=== PATIENT | female | born 1965 | race Caucasian/White ===

== ENCOUNTER 2025-07-19 10:06 | Outpatient (AMB) | payer OTHER, SELFPAY ==
--- OUTSIDE RECORDS SUMMARY | 2024-05-17 14:31 | XMS_ITS | Encounter Summary ---
Author Organization [facility] [place] [address] Care Team Providers Care Assisted Living Assistant Name Role Phone Chandler Ring MD Primary Care Provider [phone] Encounter Details Date Type Department Care Team (Late st Contact Info) Description 05/17/2024 3:31 PM EDT Hospital Encounter TH HISTORIC ENCOUNTERS EASTERN CONVERSION ONLY Whitney Perez MD [address] [place] [id number] Social History Tobacco Use Types Packs/Day Years Used Date Smoking Tobacco: Never Smokeless Tobacco: Never Alcohol Use Standard Drinks/Week Comments Yes 0 (1 standard drink = 0.6 oz pur e alcohol) Interpersonal Safety Answer Date Record ed Physical Abuse Unrecognized value 06/02/2025 Verbal Abuse Unrecognized value 06/02/2025 Comments No Sex and Gender Information Value Date Recorded Sex Assigned at Female 07/04/2024 4:47 PM EST Legal Sex Female 4:48 AM EST Gender Identity Female 07/04/2024 4:47 PM EST Sexual Orientation Straight 07/04/2024 4: 47 PM EST documented as of this encounter Last Filed Vital Signs Vital Sign Reading Time Taken Comments Blood Pressure - - Pulse - - Temperature - - Respiratory Rate - - Oxygen Saturation - - Inhaled Oxygen Concentration - - Weight 61.7 kg (136 lb) 04/14/2024 11:17 AM EDT Height 154.9 cm (5' 1 ) 04/14/2024 11:17 AM EDT Body Mass Index 25.7 04/14/2024 11:17 AM EDT documented in this encounter Procedure Notes * Whitney Perez MD - 05/17/2024 3:30 PM EDT Procedures The patient reports no side effect with the use of Botox. The patient reports improvement in headaches by at least 50 % since last injection. At baselines the patient had 30 days out of 30 days of headaches and after botox there [id number] of headaches per month in average. The patient would like to proceed. BOTULINUM TOXIN INJECTION PROCEDURE NOTE DATE: 05/17/2024 INDICATION(S): Chronic Migraine Complications of the botulinum toxin injection were explained to the patient and patient signed a written consent form. It was explained to the patient that botulinum toxin effects may not be felt for about 2 weeks. Side effects may include injection site pain, injection site swelling, bruising, infection, flu- like symptoms, diplopia, dysphagia, neck weakness. Skin was prepped with alcohol pads. 200 units of Botox (botulinum toxin type A) was dissolved in 4 ml of sterile normal saline solution. Lot Number:see MAR Patient had injection of the following with a 30G needle attached to a 1 ml insulin syringe: MUSCLES L side (sites) R side (sites) Biomass Technician 5 units (1) 5 units (1) Procerus 5 units (central) Frontalis 10 units (2) 10 units (2) Temporalis 20 units (4) 20 units (4) Occipitalis 15 units (3) 15 units (3) Cervical Paraspinal 10 units (2) 10 units (2) Trapezius 15 units (3) 15 units (3) Total injected: 155 units Total Wasted: 45 units Injection sites were watched closely to confirm hemostasis. No complications were observed with today's procedure.The patient tolerated the procedure well. Information hand out was provided to the patient. I asked the patient to call me with any problems. Patient was instructed not to massage or use heat over the injected site for 24 hours. I asked the patient to call me with any issues and to follow up with me for repeat injection in 3 months. documented in this encounter Plan of Treatment Upcoming Encounters Date Type Department Care Team (Late st Contact Info) Description 08/02/2025 11:20 AM EST Procedure visit [facility] [address] [address] Whitney Perez MD [address] [place] [address] 08/08/2025 3:00 PM EST Office Visit [facility] [address] [id number] Whitney Perez MD [address] [place] [address] documented as of this encounter Visit Diagnoses Not on filedocumented in this encounter Care Teams Assisted Living Assistant Relationship Specialty Start Date End Date Chandler Ring MD [address] [facility] [place] PCP - General 11/25/22 documented as of this encounter
[2025-07-19 10:07] VITALS: BMI 31.4
--- NOTE | 2025-07-19 10:07 | A.PHYSOV ---
Vital Signs 07/19/25 10:07 Height 5 ft Weight 161 lb BMI 31.4 Intake Visit Reasons: FUV AFTER INJECTION 05/22/2025 Intake Note: Patient is a 60 year old female here today for a follow up visit after Right C5-6 and C6-C7 Facet Injections (05/22/25). Allergies amoxicillin Allergy (Unknown, Verified 07/19/25 10:08) Unknown azithromycin Allergy (Unknown, Verified 07/19/25 10:08) Unknown Benzoate Analogues Allergy (Unknown, Verified 07/19/25 10:08) Unknown fluconazole Allergy (Unknown, Verified 07/19/25 10:08) Unknown latex Allergy (Unknown, Verified 07/19/25 10:08) Unknown nabumetone Allergy (Unknown, Verified 07/19/25 10:08) Unknown Penicillins Allergy (Unknown, Verified 07/19/25 10:08) Unknown sumatriptan Allergy (Unknown, Verified 07/19/25 10:08) Unknown HPI Comments Details: History of Present Illness The patient is a 60 year old individual presenting for a follow-up visit for persistent neck and right arm pain. The patient reports pain in the right shoulder both with movement and at rest, which is exacerbated by lifting the right arm. A right subacromial shoulder injection on February 23, 2025, provided significant relief for about two months, after which the pain, located in the front and back of the shoulder, returned in April 2025. The patient reports a constant clicking sensation in the right shoulder and has maintained normal range of motion through home exercises. Following right C5-C6 and C6-C7 facet injections on May 22, 2025, the patient's neck pain has resolved, although pain at the base of the neck with right arm lifting was previously rated 7/10. A cervical spine MRI from January 26, 2025 showed only mild degenerative changes and moderate left foraminal narrowing at C3-C4, which were deemed inconsistent with the symptomatic presentation. Right shoulder X-rays were unremarkable. Past medical history is significant for a thalamic infarction in 2021, which resulted in a mild right hemiparesis. The patient has an upcoming ophthalmologic procedure to place stents for clogged tear ducts. Pain Description - Location: The patient reports persistent pain in the right shoulder, both anteriorly and posteriorly. - Quality: The pain is described as severe enough that it kills and is associated with a constant clicking sound. - Onset/Timing: The shoulder pain is constant and described as it never doesn't hurt. - Exacerbating Factors: Pain is worse with lifting the right arm and when lying down flat. - Relieving Factors: A subacromial injection in the right shoulder provided temporary relief for two weeks. - Status: Neck pain has resolved following recent cervical facet injections. Results - Cervical Spine MRI (January 26, 2025): Revealed mild degenerative changes and moderate left foraminal narrowing at C3-C4, inconsistent with symptoms. - Right Shoulder X-ray (Recent): Unremarkable. 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 - Musculoskeletal: Reports persistent right shoulder pain, both anteriorly and posteriorly, with an associated clicking sound. - Reports neck pain is currently resolved. - Genitourinary: Denies any change in urinary habits. - Eyes: Reports clogged tear ducts, which will be treated with stenting in an upcoming surgery. Physical Exam Exam Exam: Physical Exam - Musculoskeletal: Examination of the right shoulder revealed tenderness to palpation. - Strength testing against resistance showed adequate strength, negative drop-arm test. Neurological examination of upper extremities was nonfocal Examination of the right shoulder reveals positive Caban and Neer signs, negative shoulder apprehension test. Cervical range of motion was restricted and side bending. Spurling maneuver was negative. Lhermitte's sign was negative. Patient demonstrated no upper motor neuron signs. Vital Signs: BMI result Body Mass Index 31.4 Assessment & Plan Assessment & Plan (1) Rotator cuff impingement syndrome of right shoulder: Code(s): M75.41 - Impingement syndrome of right shoulder Category: Medical (2) Neck pain: Code(s): M54.2 - Cervicalgia Category: Medical (3) Cervicobrachial syndrome: Code(s): M53.1 - Cervicobrachial syndrome Category: Medical (4) Spondylosis of cervical region without myelopathy or radiculopathy: Code(s): M47.812 - Spondylosis without myelopathy or radiculopathy, cervical region Category: Medical Plan Pain Management - Affect: Not discussed. - Analgesia: Recent C5-C6 and C6-C7 facet injections have resolved the patient's neck pain. - A right shoulder subacromial injection in February provided temporary relief for two months, but the pain has since returned and is now constant. - Activities of Daily Living: The patient has regained normal range of motion in the right shoulder and actively performs stretches and exercises, but continues to have persistent pain, despite ongoing physician guided home exercises. Plan Patient was informed and verbally consented to the use of an ambient scribe for clinic note documentation during this visit. 1. Right Shoulder Pain The patient presents with persistent right shoulder pain despite a previous subacromial injection which provided only temporary relief. Given the unremarkable X-ray and constant nature of the pain with clicking, an MRI of the right shoulder is being ordered to evaluate for underlying pathology such as a rotator cuff issue or bone spur. This imaging is preferred before considering another injection to avoid obscuring the results. The patient will be contacted to schedule the MRI at [facility] once insurance authorization is obtained. A follow-up appointment will be scheduled after the s to review the MRI results, at which point further treatment, such as a repeat injection or a referral to an orthopedic surgeon, will be determined. 2. Cervicalgia The patient's neck pain has resolved following recent C5-C6 and C6-C7 facet injections. No further intervention is planned for this issue at this time. Discussion Notes I discussed the patient's clinical presentation, noting the resolution of neck pain after the recent cervical facet injections and the persistence of right shoulder pain. I explained that because the previous shoulder injection offered only temporary relief and X-rays were normal, further investigation is needed. I recommended an MRI of the right shoulder to evaluate for underlying pathology, such as a rotator cuff tear or a bone spur, explaining that a complete tear is unlikely given the patient's preserved strength. I informed the patient that it would be best to obtain the MRI before considering another injection, as the fluid from an injection could obscure the imaging results. The patient agreed to the plan. I explained that the MRI requires insurance pre-authorization and the patient will be contacted for scheduling at [facility]. We agreed to a follow-up visit after the holidays to review the MRI results, at which point we will decide on the next steps, which may include another injection or a surgical referral. I advised the patient to schedule the MRI at a time that is convenient and accommodates the patient's upcoming eye surgery. Patient Instructions - We will order an MRI of your right shoulder to get a better look at what is causing your pain. - Our office will request approval from your insurance company, which can take about a week. - Once the MRI is approved, the imaging center will call you to schedule the appointment. - Please schedule the MRI at a time that is convenient for you, especially considering your upcoming eye surgery. - Continue to gently move and stretch your shoulder as you have been doing. - Please schedule a follow-up appointment with our office for after the hols to review the MRI results and discuss the next steps in your treatment. Orders: Orders MR shoulder RT wo con Today M75.41 - Impingement syndrome of right shoulder Coding Level of Care Code Est Pt Level 4 (46417) Complex visit Add On G2211 Diagnoses Rotator cuff impingement syndrome of right shoulder M75.41 Neck pain M54.2 Cervicobrachial syndrome M53.1 Spondylosis of cervical region without myelopathy or radiculopathy M47.812
--- OUTSIDE RECORDS SUMMARY | 2025-07-19 11:28 | XMS_ITS ---
Author Name [facility] History of Medication Use Medication Directions Dispensed Refills Start Date End Date Stat us pregabalin (Lyrica) 25 MG capsule Take 1 capsule (25 mg total) by mouth every night at bedtime for 7 days, THEN 2 capsules (50 mg total) every night at bedtime for 40 days. 05/17/2024 07/04/2024 active gabapentin (NEURONTIN) 800 MG tablet 1 po hs 04/11/2024 active botulinum toxin type A (BOTOX) injection SOLR 200 Units 02/17/2024 05/17/2024 completed DULoxetine (CYMBALTA) DR capsule 30 mg TAKE 1 CAPSULE BY MOUTH EVERY DAY FOR 2 WEEKS THEN TAKE 2 CAPSULES BY MOUTH EVERY DAY 12/30/2023 05/17/2024 aborted galcanezumab-gnlm (Emgality) 120 MG/ML injection Inject 1 mL (120 mg total) under the skin every 28 days. Begin 1 month after initial loading dose of 240 mg. 12/04/2023 active gabapentin (NEURONTIN) 600 MG tablet Take 1 tablet (600 mg total) by mouth 2 (two) times a day. 07/01/2023 active desonide (DESOWEN) 0.05 % cream 11/24/2022 active fluocinonide (LIDEX) 0.05 % cream 11/24/2022 active diazePAM (VALIUM) tablet 5 mg I po 1 hour prior to MRI. May take an additional 1/2 tab at time of MRI if needed. 06/16/2022 active Orhntosofh-NIDD-Aaa feine 50-300-40 MG CAPS Take 1 capsule by mouth every 4 (four) hours as needed. 05/22/2022 active topiramate (TOPAMAX) 50 MG tablet Take 2 tablets (100 mg total) by mouth 2 (two) times a day. 05/12/2022 active buPROPion (WELLBUTRIN XL) 300 MG 24 hr tablet TAKE 1 TABLET BY MOUTH EVERY 24 HOURS 04/27/2022 active Aspirin Low Dose 81 MG EC tablet Take 1 tablet (81 mg total) by mouth daily. 04/08/2022 active atorvastatin (LIPITOR) tablet 80 mg Take 1 tablet (80 mg total) by mouth every night at bedtime. 03/28/2022 02/17/2024 active Botox 200 units SOLR injection 03/20/2022 active naltrexone (DEPADE) 50 MG tablet Take by mouth. 05/22/2021 active ondansetron (ZOFRAN) 4 MG tablet Zofran Take 1 tablet (oral) 3 times per day PRN - Nausea for 2 days Oral dissolving tabs please. [id number] tablet 3 times per day oral 2 days suspended 4 mg 08/27/2019 active Allergies Allergen Reaction Severity Comment Documented Date Source Statu s FLUCONAZOLE 07/08/2022 [facility] active BENZONATATE 05/28/2022 [facility] active AZITHROMYCIN [facility] AMOXICILLIN [facility] LATEX [facility] PENICILLINS [facility] SUMATRIPTAN [facility] Problems Problem Status Onset Date Problem Type Date of Resolution Source Chronic migraine w/o aura w/o status migrainosus, not intractable active EncounterDiagnosisAct [facility] MG Care Team Organization Name Specialty Phone Email Start Date End Da te [facility] MARIE FAGAN Primary Care 07/29/2023 04/04/2024
--- OUTSIDE RECORDS SUMMARY | 2025-07-19 11:28 | XMS_ITS | Clinical Summary ---
Author Organization [facility] Address [address] [place] [address] Care Team Providers Care It Quality Analyst Name Role Phone Chandler Ring MD Primary Care Provider [phone] Allergies Active Allergy Reactions Criticality Noted Date Comments Amoxicillin 05/28/2022 Azithromycin 07/08/2022 Fluconazole 07/08/2022 Sumatriptan 05/28/2022 Latex 05/28/2022 Penicillins 05/28/2022 Benzonatate 05/28/2022 Medications Medication Sig Dispensed Refills Start Date End Date Status Aspirin Low Dose 81 MG EC tablet Take 1 tablet (81 mg total) by mouth daily. 0 04/08/2022 Active buPROPion (WELLBUTRIN XL) 300 MG 24 hr tablet TAKE 1 TABLET BY MOUTH EVERY 24 HOURS 0 04/27/2022 Active Zxqpkrhvzy-TLKR-Evq feine 50-300-40 MG CAPS Take 1 capsule by mouth every 4 (four) hours as needed. 0 05/22/2022 Active naltrexone (DEPADE) 50 MG tablet Take by mouth. 0 05/22/2021 Active Botox 200 units SOLR injection 0 03/20/2022 Active ondansetron (ZOFRAN) 4 MG tablet Zofran Take 1 tablet (oral) 3 times per day PRN - Nausea for 2 days Oral dissolving tabs please. [id number] tablet 3 times per day oral 2 days suspended 4 mg 0 08/27/2019 Active topiramate (TOPAMAX) 50 MG tablet Take 2 tablets (100 mg total) by mouth 2 (two) times a day. 0 05/12/2022 Active diazePAM (VALIUM) tablet 5 mg I po 1 hour prior to MRI. May take an additional 1/2 tab at time of MRI if needed. 10 tablet 0 06/16/2022 Active fluocinonide (LIDEX) 0.05 % cream 0 11/24/2022 Active desonide (DESOWEN) 0.05 % cream 0 11/24/2022 Active gabapentin (NEURONTIN) 600 MG tablet Take 1 tablet (600 mg total) by mouth 2 (two) times a day. 180 each 3 07/01/2023 Active galcanezumab-gnlm (Emgality) 120 MG/ML injection Inject 1 mL (120 mg total) under the skin every 28 days. Begin 1 month after initial loading dose of 240 mg. 1 mL 5 03/09/2024 Active gabapentin (NEURONTIN) 800 MG tablet 1 po hs 30 tablet 5 04/11/2024 Active atorvastatin (LIPITOR) tablet 80 mg TAKE 1 TABLET (80 MG TOTAL) BY MOUTH EVERY NIGHT AT BEDTIME. 90 tablet 1 05/23/2024 Active Active Problems No known active problems Family History Medical History Relation Name Comments Multiple sclerosis Brother Parkinsonism Father Colon cancer Mother Relation Name Status Comments Brother Father Mother Alive Social History Tobacco Use Types Packs/Day Years Used Date Smoking Tobacco: Never Smokeless Tobacco: Never Tobacco Cessation:Counseling Given: Not Answered Alcohol Use Standard Drinks/Week Comments Yes 0 (1 standard drink = 0.6 oz pur e alcohol) Social Sex and Gender Information Value Date Recorded Sex Assigned at Female 04/17/2022 4:10 PM EDT Gender Identity Not on file Sexual Orientation Not on file Job Start Date Occupation Industry Not on file Not on file Not on file Last Filed Vital Signs Vital Sign Reading Time Taken Comments Blood Pressure 121/84 04/14/2024 11:17 AM EDT Pulse 88 04/14/2024 11:17 AM EDT Temperature 35.9 C (96.7 F) 04/14/2024 11:17 AM EDT Respiratory Rate 16 03/31/2023 11:32 AM EDT Oxygen Saturation 94% 04/14/2024 11:17 AM EDT Inhaled Oxygen Concentration - - Weight 61.7 kg (136 lb) 04/14/2024 11:17 AM EDT Height 154.9 cm (5' 1 ) 04/14/2024 11:17 AM EDT Body Mass Index 25.7 04/14/2024 11:17 AM EDT Plan of Treatment Health Maintenance Due Date Last Done Comments Hepatitis C Screening 1965 Depression Screening 1977 BMI Counseling 1983 Preventative Health Evaluation 1983 Cervical Cancer Screening (Pap Smear) 1986 Hepatitis B Vaccines (2 of 3 - 19+ 3-dose series) 07/04/2008 06/06/2008 Colon Cancer Screening (Colonoscopy) 2010 Breast Cancer Screening (Mammogram) 2015 COVID-19 Vaccine (3 - season) 2025 10/16/2020, 09/25/2020 Influenza Vaccine (#1) 2025 , 06/05/2022, 05/28/2021, Additional history exists DTap / Tdap / Td (2 - Td or Tdap) 07/17/2027 07/17/2017, 12/31/2001 RSV Adult > 60+ Yrs or (1 - 1-dose 75+ series) 01/27/2040 Pneumococcal Vaccine Aged Out 03/11/2016 No long er eligible based on patient's age to complete this topic Shingrix-Zoster Vaccine Completed 04/14/2018, 11/21 RSV Ped < 20 months Aged Out No longe r eligible based on patient's age to complete this topic Care Teams It Quality Analyst Relationship Specialty Start Date End Date Chandler Ring MD [address] [facility] [address] [place], [place] [id number] PCP - General Internal Medicine 11/25/22
--- OUTSIDE RECORDS SUMMARY | 2025-07-19 11:28 | XMS_ITS | Clinical Summary ---
Author Organization 175 [facility] Address [address] [place] [address] Phone Care Team Providers Care Language Teacher Name Role Phone Chandler Ring MD Primary Care Provider [phone] Allergies Active Allergy Reactions Criticality Noted Date Comments Amoxicillin 05/28/2022 Azithromycin 07/08/2022 Benzonatate 05/28/2022 Fluconazole 07/08/2022 Latex Anaphylaxis High 05/28/2022 Nabumetone 07/01/2024 Other Reaction(s): rash swelling pt takes ibuprofen at home Penicillins 05/28/2022 Sumatriptan 05/28/2022 Medications aspirin 81 mg EC tablet Take 1 tablet (81 mg total) by mouth 1 (one) time each day. 2 Active buPROPion XL (WELLBUTRIN XL) 300 mg 24 hr tablet Take 1 tablet (300 mg total) by mouth 1 (one) time each day at the same time. 2 Active butalbital-rob taminophen-caf feine 50-300-40 mg capsule Take 1 capsule by mouth Every 4 hours as needed. 2 Active desonide (DESOWEN) 0.05 % cream 3 Active diazePAM (VALIUM) 5 mg tablet I po 1 hour prior to MRI. May take an additional 1/2 tab at time of MRI if needed. 2 Active DULoxetine (CYMBALTA) [address] capsule TAKE 1 CAPSULE BY MOUTH EVERY DAY FOR 2 WEEKS THEN TAKE 2 CAPSULES BY MOUTH EVERY DAY 4 Active fluocinonide (LIDEX) 0.05 % cream 3 Active naltrexone (DEPADE) 50 mg tablet Take by mouth. 1 Active onabotulinumto xinA (Botox) 200 unit injection 2 Active ondansetron (ZOFRAN) 4 mg tablet Zofran Take 1 tablet (oral) 3 times per day PRN - Nausea for 2 days Oral dissolving tabs please. [id number] tablet 3 times per day oral 2 days suspended 4 mg 0 Active topiramate (TOPAMAX) 50 mg tablet Take 2 tablets (100 mg total) by mouth 2 (two) times a day. 2 Active ketoconazole (NIZORAL) 2 % cream every 12 hours. 4 Active estradioL (Estrace) 0.01 % (0.1 mg/gram) vaginal cream See Instructions, 1 Gm Vaginally 2 tmes per week, # 42 Gm, 3 Refills, Maintenance, 02/11/24 3:17:00 PM EDT, [facility]/pharmacy #[id number], Partial fill upon patient request if the prescription is for a schedule II opioid drug., 165, cm, 11/23/23 9:54:00 EDT, Height, 61.8, kg, 11/18/23 0:13:00 EDT, Dry Weight 3 Active docusate sodium (Colace) 100 mg capsule Take 1 capsule (100 mg total) by mouth 2 (two) times a day. 4 Active cetirizine (ZyrTEC) 10 mg tablet Take 1 tablet (10 mg total) by mouth. 4 Active buPROPion XL (WELLBUTRIN XL) 150 mg 24 hr tablet Take 1 tablet (150 mg total) by mouth 1 (one) time each day. Do not crush, chew, or split. Active galcanezumab-g nlm (Emgality Pen) 120 mg/mL injection pen Inject 1 mL (120 mg total) under the skin every 28 (twenty-eight) days. 1 Pen 3 5 Active gabapentin (NEURONTIN) 800 mg tablet TAKE 1 TABLET BY MOUTH 2 TIMES A DAY. 60 tablet 2 5 Active Miebo, PF, 100 % drops 5 Active atorvastatin (LIPITOR) 80 mg tablet TAKE 1 TABLET BY MOUTH EVERYDAY AT BEDTIME 90 tablet 1 5 Active omeprazole (PriLOSEC) [address] capsule Take 1 capsule (20 mg total) by mouth 1 (one) time each day. Do not crush or chew. 90 each 5 026 Active famotidine (Pepcid) 20 mg tablet Take 1 tablet (20 mg total) by mouth at bedtime. 90 each 5 026 Active linaCLOtide (LINZESS) 72 mcg capsule Take 1 capsule (72 mcg total) by mouth 1 (one) time each day. 30 each 1 5 025 Active pregabalin (LYRICA) 50 mg capsuleIndicat ions:Multiple sclerosis 1 p.o. in a.m. and 2 p.o. at bedtime 90 each 5 5 Active pregabalin (LYRICA) 50 mg capsuleIndicat ions:Multiple sclerosis 1 p.o. in a.m. and 2 p.o. at bedtime 90 each 5 5 025 Discontin ued(Reord er) Active Problems Problem Noted Date Diagnosed Date JACK (headache) 06/02/2025 CVA (cerebral vascular accident) (CMS/HCC V24, C MS/HCC V28) 06/02/2025 Encounters Date Type Department Care Team Description 06/05/2025 Results Follow-Up Gastroenterology - [place] 175 [facility] 175 [facility] [address] [place] [address] Judie Vance DO 06/02/2025 9:59 AM EDT Anesthesia Event [facility] [address] [place] [address] Clarissa Woods MD 06/02/2025 8:36 AM EDT - 06/02/2025 11:59 PM EDT Hospital Encounter [facility] [address] [place] [phone] Judie Vance DO Steele, Matthew G, CRNA Kriz, Petra, MD Chronic vomiting; Hiatal hernia Discharge Disposition: Home or Self Care 06/01/2025 9:10 AM EDT Office Visit Gastroenterology - [place] [address] [place] [address] Judie Vance DO Gastroesophageal reflux disease with esophagitis without hemorrhage (Primary Dx) 05/03/2025 2:20 PM EDT Procedure visit [facility] [place] [address] [place] [address] Whitney Perez MD Chronic migraine without aura without status migrainosus, not intractable (Primary Dx) from Last 3 Months Immunizations Immunization Administration Dates Next Due Pfizer SARS-CoV-2 COVID-19, mRNA, LNP-S, preservative free 10/16/2020,09/25/2020 Surgical History Surgery Date Site/Laterality Comments HYSTERECTOMY PROCEDURE:HYSTERECTOMY APPENDECTOMY PROCEDURE:APPENDECTOMY GALLBLADDER SURGERY PROCEDURE:GALLBLADDER SURGERY CYST REMOVAL PROCEDURE:CYST REMOVAL BLADDER SURGERY PROCEDURE:BLADDER SURGERY BLADDER SURGERY 06/24/2023 Bilateral PROCEDURE:BLADDER SURGERY OOPHORECTOMY PROCEDURE:OOPHORECTOMY KNEE SURGERY Left Medical History Medical History Date Comments Migraines DX:Migraines Postural orthostatic tachyca rdia syndrome (POTS) DX:Postural orthostatic tach ycardia syndrome (POTS) Stroke (CMS/HCC V24, CMS/HCC V28) DX:Stroke (HCC) R HAND WEAKNESS Fibromyalgia, primary DX:Fibromy algia, primary Lyme disease DX:Lyme disease Vertigo DX:Vertigo Diverticulosis Hyperlipidemia Vertigo Family History Medical History Relation Name Comments Multiple sclerosis Brother Parkinsonism Father Colon cancer Mother Colon cancer Mother's Sister Relation Name Status Comments Brother Father Mother Alive Mother's Sister Social History Tobacco Use Types Packs/Day Years [...] Orientation Straight 07/04/2024 4: 47 PM EST Obstetrics History Last Filed Vital Signs Vital Sign Reading Time Taken Comments Blood Pressure 134/77 06/02/2025 10:43 AM EDT Pulse 73 06/02/2025 10:43 AM EDT Temperature 36.3 C (97.3 F) 06/02/2025 8:56 AM EDT Respiratory Rate 15 06/02/2025 10:43 AM EDT Oxygen Saturation 100% 06/02/2025 10:43 AM EDT Inhaled Oxygen Concentration - - Weight 72.6 kg (160 lb) 06/01/2025 9:14 AM EDT Height 152.4 cm (5') 06/01/2025 9:14 AM EDT Body Mass Index 31.25 06/01/2025 9:14 AM EDT Plan of Treatment Upcoming Encounters Date Type Department Care Team (Late st Contact Info) Description 08/02/2025 11:20 AM EST Procedure visit [address] [phone] Whitney Perez MD [address] [place] [phone] 08/08/2025 3:00 PM EST Office Visit [address] [phone] Whitney Perez MD [address] [place] [phone] Health Maintenance Due Date Last Done Comments Breast Cancer Screening 1965 Cervical Cancer Screening: Pap Smear 1986 Hepatitis B Vaccines (2 of 3 - 19+ 3-dose series) 07/04/2008 06/06/2008 HIV Screening 07/26/2022 Hepatitis C Screening 07/26/2022 Medicare Annual Wellness Visit 07/26/2022 Social Influencers of Health Screening 07/26/2022 Depression Screening 08/17/2024 COVID-19 Vaccine ( season) 2025 10/16/2020, 09/25/2020 DTaP,Tdap,and Td Vaccines (3 - Td or Tdap) 07/17/2027 07/17/2017, 12/31/2001 Colorectal Cancer Screening: Colonoscopy 07/05/2029 07/05/2024 RSV Immunization Adult Patients (1 - 1-dose 75+ series) 01/27/2040 Zoster Vaccines Completed 04/14/2018, 11/21/2017 Pneumococcal Vaccine: 50+ Years Completed 06/25/2024, 03/11/2016 Influenza Vaccine Completed 05/04/2025, , 05/26/2023, Additional history exists HIB Vaccines Aged Out No longer eligi ble based on patient's age to complete this topic HPV Vaccines Aged Out No longer eligi ble based on patient's age to complete this topic Hepatitis A Vaccines Aged Out No long er eligible based on patient's age to complete this topic IPV Vaccines Aged Out No longer eligi ble based on patient's age to complete this topic MMR Vaccines Aged Out No longer eligi ble based on patient's age to complete this topic Meningococcal ACWY Vaccine Aged Out N o longer eligible based on patient's age to complete this topic Meningococcal B Vaccine Aged Out No l onger eligible based on patient's age to complete this topic RSV Immunization Patients Under 20 months Aged Out No longer eligible based on patient's age to complete this topic Varicella Vaccines Aged Out No longer eligible based on patient's age to complete this topic Goals Goal Patient Goal Type Associated Problems Recent Progress Patient-Stated? Author Autogenerat ed Goal Care Plan Autogenerated Problem No Janice Camarena [employer] Devices Implanted Type Area Match Marker Device Identifier Shelf Expiration Date Model / Serial / Lot Cardiac Loop Recorder Cardiac Loop Recorder Left: Breast Procedures Procedure Name Priority Date/Time Associated Diagnosis Comments EGD Routine 06/02/2025 10:22 AM EDT Chronic vomiting Hiatal hernia TISSUE EXAM Routine 06/02/2025 10:18 AM EDT Chronic vomiting Hiatal hernia COLONOSCOPY Routine 07/05/2024 3:38 PM EST History of colon polyps from Last 3 Months or Most Recently Relevant to Health Maintenance Results * EGD Anesthesia - MAC; [facility] ENDOSCOPY (06/02/2025 10:22 AM EDT) Anatomical Region Laterality Modality Endoscopy 06/02/2025 10:0 0 AM EDT Impressions 06/02/2025 10:22 AM EDT - Normal examined duodenum. - Normal esophagus. - Bilious gastric fluid. - Erythematous mucosa in the stomach. Biopsied. Recommendation: - Discharge patient to home. - Resume previous diet. - Continue present medications. - Await pathology results. Narrative 06/02/2025 10:22 AM EDT [facility] GI Patient Name: Shirin Chris Procedure Date: 06/02/2025 10:00 AM Date of : 1965 Age: 60 Gender: Female Note Status: Finalized Attending MD: Judie Vance DO, [id number] Procedure Date No Time: 06/02/2025 Procedure: Upper GI endoscopy Indications: Heartburn Providers: Judie Vance DO Referring MD: Judie Vance DO Medicines: Monitored Anesthesia Care Complications: No immediate complications. Estimated blood loss: Minimal. Estimated Blood Loss: Estimated blood loss was minimal. Procedure: Pre-Anesthesia Assessment: - - Prior to the procedure, a History and Physical was performed, and patient medications and allergies were reviewed. The patient is competent. The risks and benefits of the procedure and the sedation options and risks were discussed with the patient. All questions were answered and informed consent was obtained. Patient identification and proposed procedure were verified by the physician, the nurse, the anesthesiologist, the manager recruitment and the bioprocessing manufacturing technician in the pre-procedure area in the endoscopy suite. Mental Status Examination: alert and oriented. Airway Examination: normal oropharyngeal airway and neck mobility. Respiratory Examination: clear to auscultation. CV Examination: normal. Prophylactic Antibiotics: The patient does not require prophylactic antibiotics. Prior Anticoagulants: The patient has taken no anticoagulant or antiplatelet agents. ASA Grade Assessment: II - A patient with mild systemic disease. After reviewing the risks and benefits, the patient was deemed in satisfactory condition to undergo the procedure. The anesthesia plan was to use monitored anesthesia care (MAC). Immediately prior to administration of medications, the patient was re-assessed for adequacy to receive sedatives. The heart rate, respiratory rate, oxygen saturations, blood pressure, adequacy of pulmonary ventilation, and response to care were monitored throughout the procedure. The physical status of the patient was re-assessed after the procedure. After obtaining informed consent, the endoscope was passed under direct vision. Throughout the procedure, the patient's blood pressure, pulse, and oxygen saturations were monitored continuously. The Olympus Gastroscope was introduced through the mouth, and advanced to the third part of duodenum. Findings: The examined duodenum was normal. The esophagus was normal. Bilious fluid was found in the stomach. Diffuse moderately erythematous mucosa without bleeding was found in the stomach. Biopsies were taken with a cold forceps for histology. Estimated blood loss was minimal. Procedure Code(s): --- Professional --- 46882, Esophagogastroduodenoscopy, flexible, transoral; with biopsy, single or multiple Diagnosis Code(s): --- Professional --- K31.89, Other diseases of stomach and duodenum R12, Heartburn CPT copyright 2020 [employer]. All rights reserved. The codes documented in this report are preliminary and upon hand trucker review may be revised to meet current compliance requirements. JUDIE Vance DO 06/02/2025 10:21:55 AM This report has been signed electronically.Judie Vance DO Number of Addenda: 0 Note Initiated On: 06/02/2025 10:00 AM Scope In: Scope Out: Endoscopy Department at [facility] - [address] [place] [phone] Procedure Note Judie Vance DO - 06/02/2025 [facility] GI Patient Name: Shirin Chris Procedure Date: 06/02/2025 10:00 AM Date of : 1965 Age: 60 Gender: Female Note Status: Finalized Attending MD: Judie Vance DO, [id number] Procedure Date No Time: 06/02/2025 Procedure: Upper GI endoscopy Indications: Heartburn Providers: Judie Vance DO Referring MD: Judie Vance DO Medicines: Monitored Anesthesia Care Complications: No immediate complications. Estimated blood loss: Minimal. Estimated Blood Loss: Estimated blood loss was minimal. Procedure: Pre-Anesthesia Assessment: - - Prior to the procedure, a History and Physicalwas performed, and patient medications and allergieswere reviewed. The patient is competent. The risks and benefits of the procedure and the sedation optionsand risks were discussed with the patient. Allquestions were answered and informed consent was obtained. Patient identification and proposed procedure were verified by the physician, the nurse, the anesthesiologist, the manager recruitment and thetechnician in the pre-procedure area in the endoscopy suite. Mental Status Examination: alert and oriented.Airway Examination: normal oropharyngeal airway and neck mobility. Respiratory Examination: clear to auscultation. CV Examination: normal. Prophylactic Antibiotics: The patient does not requireprophylactic antibiotics. Prior Anticoagulants: The patient has taken no anticoagulant or antiplatelet agents. ASA Grade Assessment: II - A patient with mild systemic disease. After reviewing the risks and benefits,the patient was deemed in satisfactory condition to undergo the procedure. The anesthesia plan was touse monitored anesthesia care (MAC). Immediately priorto administration of medications, the patient was re-assessed for adequacy to receive sedatives. The heart rate, respiratory rate, oxygen saturations, blood pressure, adequacy of pulmonary ventilation,and response to care were monitored throughout the procedure. The physical status of the patient was re-assessed after the procedure. After obtaining informed consent, the endoscope was passed under direct vision. Throughout theprocedure, the patient's blood pressure, pulse, and oxygen saturations were monitored continuously. TheOlympus Gastroscope was introduced through the mouth, and advanced to the third part of duodenum. Findings: The examined duodenum was normal. The esophagus was normal. Bilious fluid was found in the stomach. Diffuse moderately erythematous mucosa without bleeding was found in the stomach. Biopsies weretaken with a cold forceps for histology. Estimated blood loss was minimal. Procedure Code(s): --- Professional --- 16067, Esophagogastroduodenoscopy, flexible, transoral; with biopsy, single or multiple Diagnosis Code(s): --- Professional --- K31.89, Other diseases of stomach and duodenum R12, Heartburn CPT copyright 2020 [employer]. All rights reserved. The codes documented in this report are preliminary and upon hand trucker reviewmay be revised to meet current compliance requirements. JUDIE Vance DO 06/02/2025 10:21:55 AM This report has been signed electronically.Judie Vance DO Number of Addenda: 0 Note Initiated On: 06/02/2025 10:00 AM Scope In: Scope Out: Endoscopy Department at [facility] - [address] [place] [phone] IMPRESSION: - Normal examined duodenum. - Normal esophagus. - Bilious gastric fluid. - Erythematous mucosa in the stomach. Biopsied. Recommendation: - Discharge patient to home. - Resume previous diet. - Continue present medications. - Await pathology results. us Judie Vance DO GI~PROCEDURE ORDERABLES Final Re sult * Tissue exam (06/02/2025 10:18 AM EDT) Final Diagnosis A. Stomach, biopsies: - Gastric antral and oxyntic mucosa with no specific pathologic changes. - No Helicobacter pylori organisms are morphologically identified. 06/05/2025 11:14 AM EDT [facility] at 1114 EDT Gross Description A. Stomach, biopsies: Labeled stomach biopsies . Received in formalin are four irregular harris mucosal tissue fragments, ranging from 0.1 cm to 0.4 cm in greatest dimension, which are wrapped in paper and submitted in toto in one cassette, four pieces, multiple levels on one side. ELINA 06/05/2025 11:14 AM EDT [facility] Disclaimer Unless otherwise specified, all tissue is 10% NB formalin fixed and paraffin embedded. 06/05/2025 11:14 AM EDT [facility] Tissue Stomach structure / Unknown 06/02/2025 10:18 AM EDT 06/02/2025 11:55 AM EDT us Judie Vance DO LAB PATHOLOGY ORDERABLES Final R esult [facility] [address] [place] [address], * COLONOSCOPY Anesthesia - MAC; [facility] ENDOSCOPY (07/05/2024 3:38 PM EST) Anatomical Region Laterality Modality Endoscopy 07/05/2024 3:20 PM EST Impressions 07/05/2024 3:41 PM EST - Hemorrhoids found on perianal exam. - One 6 mm polyp in the sigmoid colon, removed with a cold snare. Resected and retrieved. - The examination was otherwise normal on direct and retroflexion views. Recommendation: - - Discharge patient to home. - High fiber diet. - Continue present medications. - Await pathology results. - Repeat colonoscopy for surveillance based on pathology results. Narrative 07/05/2024 3:41 PM EST [facility] GI Patient Name: Shirin Chris Procedure Date: 07/05/2024 3:20 PM Date of : 1965 Age: 59 Gender: Female Note Status: Finalized Attending MD: Judie Vance DO, [id number] Procedure Date No Time: 07/05/2024 Procedure: Colonoscopy Indications: High risk colon cancer surveillance: Personal history of colonic polyps Providers: Judie Vance DO Referring MD: Chandler Ring MD Medicines: Monitored Anesthesia Care Complications: No immediate complications. Estimated blood loss: Minimal. Estimated Blood Loss: Estimated blood loss was minimal. Procedure: Pre-Anesthesia Assessment: - - Prior to the procedure, a History and Physical was performed, and patient medications and allergies were reviewed. The patient is competent. The risks and benefits of the procedure and the sedation options and risks were discussed with the patient. All questions were answered and informed consent was obtained. Patient identification and proposed procedure were verified by the physician, the nurse, the anesthesiologist, the manager recruitment and the bioprocessing manufacturing technician in the pre-procedure area in the endoscopy suite. Mental Status Examination: alert and oriented. Airway Examination: normal oropharyngeal airway and neck mobility. Respiratory Examination: clear to auscultation. CV Examination: normal. Prophylactic Antibiotics: The patient does not require prophylactic antibiotics. Prior Anticoagulants: The patient has taken no anticoagulant or antiplatelet agents. ASA Grade Assessment: II - A patient with severe systemic disease. After reviewing the risks and benefits, the patient was deemed in satisfactory condition to undergo the procedure. The anesthesia plan was to use monitored anesthesia care (MAC). Immediately prior to administration of medications, the patient was re-assessed for adequacy to receive sedatives. The heart rate, respiratory rate, oxygen saturations, blood pressure, adequacy of pulmonary ventilation, and response to care were monitored throughout the procedure. The physical status of the patient was re-assessed after the procedure. After I obtained informed consent, the scope was passed under direct vision. Throughout the procedure, the patient's blood pressure, pulse, and oxygen saturations were monitored continuously. The Colonoscope was introduced through the anus and advanced to the cecum, identified by appendiceal orifice and ileocecal valve. The colonoscopy was performed without difficulty. The patient tolerated the procedure well. The quality of the bowel preparation was good. Findings: Hemorrhoids were found on perianal exam. A 6 mm polyp was found in the sigmoid colon. The polyp was sessile. The polyp was removed with a cold snare. Resection and retrieval were complete. Estimated blood loss was minimal. The exam was otherwise without abnormality on direct and retroflexion views. Procedure Code(s): --- Professional --- 75854, Colonoscopy, flexible; with removal of tumor(s), polyp(s), or other lesion(s) by snare technique Diagnosis Code(s): --- Professional --- Z86.010, Personal history of colonic polyps K64.9, Unspecified hemorrhoids D12.5, Benign neoplasm of sigmoid colon CPT copyright 2020 [employer]. All rights reserved. The codes documented in this report are preliminary and upon hand trucker review may be revised to meet current compliance requirements. JUDIE Vance DO 07/05/2024 3:41:13 PM This report has been signed electronically.Judie Vance DO Number of Addenda: 0 Note Initiated On: 07/05/2024 3:20 PM Scope Withdrawal Time: 0 hours 9 minutes 5 seconds Scope In: 3:23:24 PM Scope Out: 3:36:53 PM Endoscopy Department at [facility] - [address] [place] [phone] Procedure Note Judie Vance DO - 07/05/2024 [facility] GI Patient Name: Shirin Chris Procedure Date: 07/05/2024 3:20 PM Date of : 1965 Age: 59 Gender: Female Note Status: Finalized Attending MD: Judie Vance DO [id number] Procedure Date No Time: 07/05/2024 Procedure: Colonoscopy Indications: High risk colon cancer surveillance: Personalhistory of colonic polyps Providers: Judie Vance DO Referring MD: Chandler Ring MD Medicines: Monitored Anesthesia Care Complications: No immediate complications. Estimated blood loss: Minimal. Estimated Blood Loss: Estimated blood loss was minimal. Procedure: Pre-Anesthesia Assessment: - - Prior to the procedure, a History and Physicalwas performed, and patient medications and allergieswere reviewed. The patient is competent. The risks and benefits of the procedure and the sedation optionsand risks were discussed with the patient. Allquestions were answered and informed consent was obtained. Patient identification and proposed procedure were verified by the physician, the nurse, the anesthesiologist, the manager recruitment and thetechnician in the pre-procedure area in the endoscopy suite. Mental Status Examination: alert and oriented.Airway Examination: normal oropharyngeal airway and neck mobility. Respiratory Examination: clear to auscultation. CV Examination: normal. Prophylactic Antibiotics: The patient does not requireprophylactic antibiotics. Prior Anticoagulants: The patient has taken no anticoagulant or antiplatelet agents. ASA Grade Assessment: II - A patient with severesystemic disease. After reviewing the risks and benefits,the patient was deemed in satisfactory condition to undergo the procedure. The anesthesia plan was touse monitored anesthesia care (MAC). Immediately priorto administration of medications, the patient was re-assessed for adequacy to receive sedatives. The heart rate, respiratory rate, oxygen saturations, blood pressure, adequacy of pulmonary ventilation,and response to care were monitored throughout the procedure. The physical status of the patient was re-assessed after the procedure. After I obtained informed consent, the scope was passed under direct vision. Throughout theprocedure, the patient's blood pressure, pulse, and oxygen saturations were monitored continuously. The Colonoscope was introduced through the anus and advanced to the cecum, identified by appendiceal orifice and ileocecal valve. The colonoscopy was performed without difficulty. The patient tolerated the procedure well. The quality of the bowel preparation was good. Findings: Hemorrhoids were found on perianal exam. A 6 mm polyp was found in the sigmoid colon. Thepolyp was sessile. The polyp was removed with a coldsnare. Resection and retrieval were complete. Estimatedblood loss was minimal. The exam was otherwise without abnormality ondirect and retroflexion views. Procedure Code(s): --- Professional --- 21698, Colonoscopy, flexible; with removal of tumor(s), polyp(s), or other lesion(s) by snare technique Diagnosis Code(s): --- Professional --- Z86.010, Personal history of colonic polyps K64.9, Unspecified hemorrhoids D12.5, Benign neoplasm of sigmoid colon CPT copyright 2020 [employer]. All rights reserved. The codes documented in this report are preliminary and upon hand trucker reviewmay be revised to meet current compliance requirements. JUDIE Vance DO 07/05/2024 3:41:13 PM This report has been signed electronically.Judie Vance DO Number of Addenda: 0 Note Initiated On: 07/05/2024 3:20 PM Scope Withdrawal Time: 0 hours 9 minutes 5 seconds Scope In: 3:23:24 PM Scope Out: 3:36:53 PM Endoscopy Department at [facility] - [address] [place] [id number] IMPRESSION: - Hemorrhoids found on perianal exam. - One 6 mm polyp in the sigmoid colon, removed witha cold snare. Resected and retrieved. - The examination was otherwise normal on directand retroflexion views. Recommendation: - - Discharge patient to home. - High fiber diet. - Continue present medications. - Await pathology results. - Repeat colonoscopy for surveillance based on pathology results. Judie Vance DO GI~PROCEDURE ORDERABLES Final Re sult from Last 3 Months or Most Recently Relevant to Health Maintenance Additional Health Concerns Active Problems Noted Date Diagnosed Date Autogenerated Problem 06/01/2025 Insurance [facility] MEDICARE Member Subscriber Plan / Payer (Ef fective 2023-Present) Name:SHIRIN CHRIS Relation to Subscriber:Self Name:Shirin Chris Payer ID:[id number] Group ID:[id number] Type:Not on file Address: [address] [place] [id number] Care Teams Language Teacher Relationship Specialty Start Date End Date Chandler Ring MD [address] [place] PCP - General 11/25/22
--- OUTSIDE RECORDS SUMMARY | 2025-07-19 11:28 | XMS_ITS | Encounter Summary ---
Author Organization [facility] Address [address] [place] [address] Care Team Providers Care Editor Greeting Card Name Role Phone Chandler Ring MD Primary Care Provider [phone] Encounter Details Date Type Department Care Team ([facility] st Contact Info) Description 06/05/2025 Results Follow-Up Gastroenterology - [place] [address] [facility] [address] [facility] [address] [place] [id number] Steven Vance DO [address] [facility] [address] [place] [address] Social History Tobacco Use Types Packs/Day Years [...] PM EST documented as of this encounter Progress Notes * Steven Vance DO - 06/07/2025 5:39 AM EDT Please let the patient know that her gastric biopsies did not show any signs of precancerous cells or infections. She simply has some degree of bile reflux. My recommendation is that from now until the end of the year she has the following: -Last meal of the day should be done 3 hours before going to bed without any exceptions. - She should be on omeprazole 20 mg daily in the morning with an empty stomach. -If she feels reflux in the evening, she may take famotidine 20 mg daily before bedtime. -If she taking gabapentin? Lyrica? Cymbalta? Diazepam? Naltrexone? Bupropion? All these are medication to significantly slow gastric motility and therefore these are the reasons for which she is refluxing. If her symptoms persist after this trial, these medications will need to be reevaluated and atrial of cholestyramine will be offered. documented in this encounter Plan of Treatment Upcoming Encounters Date Type Department Care Team (Late st Contact Info) Description 08/02/2025 11:20 AM EST Procedure visit [address] [phone] Whitney Perez MD [address] [place] [id number] 08/08/2025 3:00 PM EST Office Visit [address] [phone] Whitney Perez MD [address] [place] [id number] documented as of this encounter Goals Goal Patient Goal Type Associated Problems Recent Progress Patient-Stated? Author Autogenerat ed Goal Care Plan Autogenerated Problem No Janice Camarena documented as of this encounter Visit Diagnoses Not on filedocumented in this encounter Additional Health Concerns Active Problems Noted Date Diagnosed Date Autogenerated Problem 06/01/2025 documented as of this encounter Care Teams Editor Greeting Card Relationship Specialty Start Date End Date Chandler Ring MD [address] [place], [place] PCP - General 11/25/22 documented as of this encounter
== END 2025-07-19 10:34 | disposition home or self-care (01) ==
LOC: HO.HPHYS 10:06
PROVIDERS: PCP Student in an Organized Health Care Education/Training Program; Visit Provider Physical Medicine & Rehabilitation
DX: M75.41 Impingement syndrome of right shoulder (principal); M54.2 Cervicalgia; M53.1 Cervicobrachial syndrome; M47.812 Spondylosis without myelopathy or radiculopathy, cervical region
CPT/HCPCS: 99214; G2211

== ENCOUNTER → 2025-07-19 10:06 | Outpatient (BNVA) | payer OTHER, SELFPAY | PROVIDERS: PCP Student in an Organized Health Care Education/Training Program; Visit Provider Physical Medicine & Rehabilitation | DX: M47.812 Spondylosis without myelopathy or radiculopathy, cervical region (principal); M53.1 Cervicobrachial syndrome; M75.41 Impingement syndrome of right shoulder; M25.511 Pain in right shoulder; M54.2 Cervicalgia | CPT/HCPCS: 99212 ==